=== PATIENT | male | born 1935 | race Caucasian/White ===

== ENCOUNTER → 2016-11-07 14:54 | Outpatient (CLI) | payer MEDICARE, OTHER ==
[2014-10-24 05:55] VITALS: BMI 31.8
[~2016-11-07 14:54] MED LIST: ACETAMINOPHEN325 MG PO; ASCORBIC ACID500 MG PO; ASPIRIN 81 MG E81 MG PO; CALCIUM CITRATE1 TAB PO; CARDURA8 MG PO; CLARITIN 10 MG10 MG PO; COLACE PO; COLACE100 MG PO; FERROUS SULFAT325 MG PO; FIBER PO; FISH OIL 1,0001 CA1 PO; FISH OIL PO; GLUCOSAMINE HC500 MG PO; GLUCOSAMINE PO; HYDROCHLOROTHIA25 MG PO; HYDROCODONE-APA1 TAB PO; LEVOXYL25 MCG PO; LIPITOR40 MG PO; MELOXICAM PO; MILK OF MAGNESI30 ML GT; MIRALAX17 GM PO; MOBIC7.5 MG PO; MULTIPLE VITAMI1 TA1 PO; PACERONE100 MG PO; PRINIVIL20 MG PO; PROBIOTIC1 EAC1 PO; QUESTRAN PACK4 G/PKT PO; RESTORIL15 MG PO; SAW PALMETTO450 MG PO; SENOKOT-S TABLE1 TAB PO; SYNTHROID200 MC1 PO; SYNTHROID25 MCG PO; TOPROL XL50 MG PO; TYLENOL PM1 TAB PO; ZESTRIL20 MG PO; ZESTRIL40 MG PO; ZOCOR80 MG PO; [UNRECOGNIZED DRUG - REMARK]
== END | disposition home or self-care (01) ==
LOC: D.US 14:54
DX: I70.211 Atherosclerosis of native arteries of extremities with intermittent claudication, right leg (principal)

== ENCOUNTER 2016-12-17 10:43 | Outpatient (CLI) | payer MEDICARE, OTHER ==
[~2016-12-17] VITALS: Ht 180.3 cm; Wt 106.8 kg
--- NOTE | ~2016-12-17 | HEMODYNAMI ---
PATIENT:NESSA CHEATHAM MEDICAL RECORD: [id number] : 33 LOCATION:D.CAT ADMISSION DATE: 12/17/16 Generatedon:12/17/201613:27 Patient name: NESSA CHEATHAM Patient #: [id number] SSN: DO B: 1935 Date of study: 12/17/2016 Page: Of Hemodynamic Procedure Report Patient Data Patient Demographics Procedure consent was obtained First Name: NESSA Gender: Male Last Name: LINDEN : 1935 Middle Initial: M Age: 81 year(s) Patient #: [id number] Race: Unknown Additional ID: [id number] Contact details [address]: [address] [place] [address] State: [place] City: [place] Zip code: [address] Admission Admission Data Admission Date: 12/17/2016 Admission Time: 10:43 Procedure Procedure Types Cath Procedure Miscellaneous Procedures Moderate Sedation up to 15 minutes Peripheral Cath Diagnostic Procedure Cath Peripheral Yzvph-Mknsrlt-Gst-Off Procedure Description Procedure Date Procedure Date: 12/17/2016 Procedure Start Time: 13:16 Procedure End Time: 13:26 Procedure Staff Name Function Sandoval Quan MD Performing Physician Chloe Garcia RT Scrub Shady Rome RN Nurse Radha Carlson RT Monitor Procedure Data Cath Procedure Fluoroscopy Diagnostic fluoroscopy Total fluoroscopy Time: 1 time: 1 min min Diagnostic fluoroscopy Total fluoroscopy dose: 602 dose: 602 mGy mGy Contrast Material Contrast Material Type Amount (ml) Isovue 300 130 Entry Location Entry Primary Successful Side Size Upsize Upsize Entry Closure Succes sful Closure Location (Fr) 1 (Fr) 2 (Fr) Remarks Device Remarks Femoral Left 5 Fr Exoseal artery Estimated blood loss: 10 ml Diagnostic catheters Device Type Used For End Catheter Placement Cordis Tempo 5Fr UF Procedure catheter Procedure Complications No complications Procedure Medications Medication Administration Route Dosage Oxygen NC 2 l/min Heparin Flush Bag added to field 2 bags (1000units/500ml NS) 0.9% NaCl I.V. 100 ml/hr Fentanyl I.V. 50 mcg Versed I.V. 1 mg Fentanyl I.V. 50 mcg Versed I.V. 1 mg Hemodynamics Rest Pre Cath Intra NCS Post Cath Vital Signs Time Heart Resp SPO2 NIBP (mmHg) Rhythm Pain Sedation Rate (ipm) (%) Status Level (bpm) 12:56:15 60 18 92 174/82(132) NSR 0 (11) 10(A) , No pain 13:01:25 51 17 100 176/86(150) NSR 0 (11) 10(A) , No pain 13:06:51 48 17 100 163/72(134) NSR 0 (11) 10(A) , No pain 13:12:04 48 18 99 155/69(127) NSR 0 (11) 10(A) , No pain 13:16:28 46 18 99 148/75(97) NSR 0 (11) 10(A) , No pain 13:20:46 50 18 100 134/72(122) NSR 0 (11) 10(A) , No pain 13:26:01 49 17 99 153/72(132) NSR 0 (11) 10(A) , No pain Medications Time Medication Route Dose Verified Delivered Reason Notes Effec tiveness by by 12:59:40 Oxygen NC 2 Shady Shady Per l/min Wild Rome RN physician RN 12:59:50 Heparin Flush added 2 Shady Shady used for Bag to bags Wild Rome RN procedure (1000units/500ml field RN NS) 13:00:05 0.9% NaCl I.V. 100 Shady Shady Per ml/hr Wild Rome RN physician RN 13:12:55 Fentanyl I.V. 50 Shady Shady for anthony Rome RN sedation RN 13:13:02 Versed I.V. 1 mg Shady Shady for Wild Rome RN sedation RN 13:16:20 Fentanyl I.V. 50 Shady Shady for antohny Rome RN sedation RN 13:16:23 Versed I.V. 1 mg Shady Shady for Wild Rome RN sedation tire assembler Log Time Note 12:32:31 Shady Rome RN sent for patient. Start room use. 12:42:24 Time tracking: Regular hours 12:42:28 Plan of Care:Hemodynamics will remain stable., Cardiac rhythm will remain stable., Comfort level will be maintained., Respiratory function will remain adequate., Patient/ family verbilizes understanding of procedure., Procedure tolerated without complication., Recovers from procedure without complications.. 12:49:43 Patient received from Pre/Post Procedure Room to CCL 2 Alert and oriented. Tansferred to table in Supine position. 12:49:45 Warm blankets applied, and roselia hugger turned on for patient comfort. 12:49:45 Correct patient and procedure confirmed by team. 12:49:46 Signed procedure consent form obtained from patient. 12:49:47 ECG and BP/O2 sat monitors applied to patient. 12:49:48 Full Disclosure recording started 12:54:50 Vital chart was started 12:58:29 H&P Date Dictated: 12/16/2016 Within 30 days and on chart., H&P Addendum completed by physician on day of procedure. (MUST COMPLETE FOR ALL OUTPATIENTS). 12:58:30 Pre-procedure instructions explained to patient. 12:58:30 Pre-op teaching completed and patient verbalized understanding. 12:58:32 Family in waiting room. 12:58:34 Patient NPO since Midnight. 12:58:43 Is patient on blood thinner?No 12:58:46 Patient diabetic? No. 12:58:55 Snore? Yes 12:58:56 Sleep apnea? Yes 12:58:59 Sticks out tongue? No 12:59:05 Dentures? No ? 12:59:16 IV patent on arrival in right hand with 0.9% NaCl at [facility]. 12:59:31 Lab results completed and on chart. 12:59:37 Bilateral groins area was prepped with chlora-prep and draped in sterile fashion 12:59:38 Alarms reviewed by R. N. 12:59:39 Sharps counted by scrub and verified by R.N. 12:59:40 Oxygen 2 l/min NC was administered by Shady Rome RN; Per physician; 12:59:50 Heparin Flush Bag (1000units/500ml NS) 2 bags added to field was administered by Shady Rome RN; used for procedure; 12:59:57 Bilateral groins site verified by team. 13:00:05 0.9% NaCl 100 ml/hr I.V. was administered by Shady Rome RN; Per physician; 13:00:06 Physical assessment completed. ASA score P 2 - A patient with mild systemic disease as per Sandoval Quan MD. 13:00:10 Sedation plan: IV Moderate Sedation Versed, Fentanyl 13:04:51 Physician paged 13:12:41 Physician arrived 13:12:45 --------ALL STOP TIME OUT------ 13:12:46 Final Timeout: patient, procedure, and site verified with staff and physician. All members of the team are in agreement. 13:12:55 Fentanyl 50 mcg I.V. was administered by Shady Rome RN; for sedation; 13:13:02 Versed 1 mg I.V. was administered by Shady Rome RN; for sedation; 13:13:19 Procedure type changed to Cath procedure, Miscellaneous Procedures, Moderate Sedation up to 15 minutes, Peripheral Cath Diagnostic Procedure, Cath Peripheral, Vqmsp-Ljhicju-Dzj-Off 13:13:22 Use device set Femoral Dx 13:13:28 Acist Syringe opened to sterile field. 13:13:29 Bag Decanter opened to sterile field. 13:13:30 Medline Cath Pack opened to sterile field. 13:13:31 Terumo 5Fr Methuen Sheath opened to sterile field. 13:13:32 St Chacorta 260cm J .035 wire opened to sterile field. 13:13:34 Acist Hand Control opened to sterile field. 13:13:35 Acist Manifold opened to sterile field. 13:13:37 Tegaderm 4 x 4 opened to sterile field. 13:15:18 Procedure started. 13:16:20 Fentanyl 50 mcg I.V. was administered by Shady Rome RN; for sedation; 13:16:23 Versed 1 mg I.V. was administered by Shady Rome RN; for sedation; 13:16:31 Local anesthetic to left femerol artery with Lidocaine 2% by Sandoval Quan MD.INITIAL ACCESS ONLY 13:16:53 A 5 Fr sheath was inserted into the Left Femoral artery 13:17:37 A Cordis Tempo 5Fr UF catheter was advanced over the wire and used for Procedure. 13:18:45 Abdominal angiogram w/ runoff was performed. 13:19:42 Left leg runoff performed. 13:21:18 Right leg runoff performed. 13:23:41 Cordis 5Fr Exoseal opened to sterile field. 13:25:03 Sheath removed intact; hemostasis achieved with Exoseal to the Left Femoral artery. 13:25:12 Procedure ended.(Physican Out) 13:25:16 Fluoroscopy time 01.00 minutes. 13:25:23 Fluoroscopy dose: 602 mGy 13:25:23 Flurop Dose total: 602 13:25:27 Contrast amount:Isovue 300 130ml. 13:25:28 Sharps counted by scrub and verified by R.N. 13:25:30 Insertion/operative site no bleeding no hematoma. 13:25:36 Post left femerol artery:stable 13:25:38 Post Procedure Pulses reassessed and unchanged 13:25:41 Post-procedure physical assessment completed. ASA score P 2 - A patient with mild systemic disease as per Sandoval Quan MD. 13:25:45 Post procedure rhythm: unchanged. 13:25:48 Estimated blood loss: 10 ml 13:25:49 Post procedure instruction explained to patient.Patient verbalizes understanding. 13:25:56 Procedure and supply charges have been captured, reviewed, submitted and are correct. 13:26:03 Procedure Complication : No complications 13:26:20 Vital chart was stopped 13:26:21 See physician's report for complete and final results. 13:26:24 Patient transfered to Pre/Post Procedure Room with Stretcher. 13:26:27 Procedure ended. 13:26:27 Full Disclosure recording stopped 13:26:30 End room use (Document Last) Device Usage Item Manufacture Quantity Catalog Hospital Part Current Minimal Lot# / Name Number Charge Number Stock Stock Seri al# Code Acist Acist 1 75717 217491 121658 113792 20 Syringe [employer] Bag Microtek 1 2002S 607013 89312 164921 5 Decanter [employer] Inc. Medline Cardinal 1 [id number] 55304 229838 5 Cath Health Pack Terumo Terumo 1 [id number] [id number] 434021 184028 [address] Ch[address] St Chacorta 1 737106 673635 786985 163444 30 260cm J .035 wire Acist Acist 1 10948 228053 347530 918185 5 Hand Medical [employer] Inc Acist Acist 1 97492 428298 191126 462640 5 Manifold Medical Systems Inc TegadeReplaced by [facility] 1 [id number] 580363 035488 5 4 x 4 Cordis Cardinal 1 [id number] 931795 706836 092549 10 Sharp [facility] Health 5Fr UF catheter Cordis Cardinal 1 EX500 939188 754670 961057 10 5Fr Health Exoseal Signature Audit [place] Stage Time Signature Unsigned Intra-Procedure 12/17/2016 Radha Carlson 1:27:35 PM RT(R) Signatures Monitor : Radha Carlson Signature : RT Date : Time : [id number] [place] [address]
[2016-12-17] MEDS ORDERED: BONIVA150 MG PO (11:06)
[2016-12-17 11:16] VITALS: BP 159/77; Ht 180.3 cm; Wt 106.8 kg
[2016-12-17 11:27] LABS: BASOPHILS 0.9 % (0-2); EOSINOPHILS 8.1 % (0-7); HEMATOCRIT 39.8 % (42.0-54.0); HEMOGLOBIN 13.4 g/dL (13.5-17.5); IMMATURE GRANULOCYTES 0.3 % (0-5); LYMPHOCYTES 28.9 % (15-50); MCH 31.2 pg (26.0-34.0); MCHC 33.7 g/dL (31.0-37.0); MCV 92.6 fL (80.0-100.0); MEAN PLATELET VOLUME 9.6 fL (7.4-10.4); MONOCYTES 9.6 % (2-11); NEUTROPHILS 52.2 % (40-80); PLATELET COUNT 210 10x3/uL (130-400); WBC 7.7 10x3/uL (4.8-10.8)
[2016-12-17 11:38] LABS: ANION GAP 13.5 mmol/L (8-16); CALCIUM 9.2 mg/dL (8.5-10.1); CARBON DIOXIDE 28.8 mmol/L (21.0-32.0); CREATININE - SERUM 1.3 mg/dL (0.6-1.3); POTASSIUM - SERUM 4.3 mmol/L (3.5-5.1)
--- NOTE | 2016-12-17 13:55 | NUR ---
2L NC, NO RESP DISTRESS NOTED. LEFT GROIN 5F EXOSEAL CDI, NO BLEEDING OR HEMATOMA NOTED. NO C/O PAIN OR NAUSEA. VSS. INSTRUCTED PT TO KEEP HEAD FLAT ON PILLOW AND LEFT LEG STRAIGHT.
--- NOTE | 2016-12-17 14:25 | NUR ---
2L NC, NO RESP DISTRESS NOTED. LEFT GROIN 5F EXOSEAL CDI, NO BLEEDING OR HEMATOMA NOTED. VSS. NO C/O AT THIS TIME. WILL CONTINUE TO MONITOR.
--- NOTE | 2016-12-17 15:15 | NUR ---
HOB ELEVATED 30 DEGREES, NO BLEEDING OR HEMATOMA NOTED TO LEFT GROIN. VSS.
--- NOTE | 2016-12-17 15:34 | NUR ---
DR. URBINA AT BEDSIDE SPEAKING WITH PT AND FAMILY. RIGHT HAND PIV D/C'D WITH CATHETER INTACT, BAND AID TO SITE. UP TO BEDSIDE TO GET DRESSED.
--- NOTE | 2016-12-17 15:42 | NUR ---
DISCHARGE INSTRUCTIONS GIVEN, VERBALIZED UNDERSTANDING.
--- NOTE | 2016-12-17 15:50 | NUR ---
TAKEN OUT VIA WHEELCHAIR BY CATH EXCELSIOR MACHINE FEEDER. LEFT FACILITY WITH AND ALL PERSONAL BELONGINGS.
--- NOTE | 2016-12-18 14:06 | OP ---
PATIENT NAME: NESSA CHEATHAM MEDICAL RECORD: [id number] :33 LOCATION:D.CAT ADMISSION DATE: SURGEON: CAPRI URBINA MD DATE OF OPERATION: 12/17/2016 Aortofemoral Runoff PROCEDURE: Left femoral was cannulated via modified Seldinger technique. The catheter was placed above the level of the renal arteries and abdominal aorta with runoff performed. The catheter was then pulled down to the bifurcation for lower extremity runoff. FINDINGS: 1. Abdominal aorta. This shows no evidence of dissection, no evidence of aneurysm. Renal arteries, ____. Right renal artery shows no evidence of significant stenosis. Left renal artery shows no evidence of significant stenosis. 2. The catheter was withdrawn to the level of the bifurcation. 3. Left system: Left common iliac shows no evidence of significant stenosis. Left internal iliac, no evidence of significant stenosis. Left external iliac, no evidence of significant stenosis. Common femoral, no significant stenosis. Left deep femoral system shows no significant stenosis. Left superficial system shows minimal wall disease throughout its course with good 3-vessel runoff distally. 4. Right system: Right common iliac, no evidence of significant stenosis. Right external iliac, no significant stenosis. Right internal iliac no significant stenosis. Femoral system: The left common femoral, no significant stenosis. Left deep femoral, no significant stenosis. Left superficial femoral shows marked calcification at its distal 1/3, but no flow obstructing stenosis, otherwise with good 3-vessel runoff vessel. IMPRESSION: No significant stenosis of either iliac system. TRANSINT:[id number] Voice Confirmation ID: [id number] DOCUMENT ID: [id number] CAPRI URBINA MD at 1406 CC: [id number] DICTATION DATE: 12/17/16 1330 AUDIO VISUAL COORDINATOR: 12/17/16 2257 DEP CLI 12/17/16 [facility] [address] [id number]
== END 2016-12-17 15:50 | disposition home or self-care (01) ==
LOC: D.CATH 10:43
PROVIDERS: Internal Medicine Interventional Cardiology
DX: M79.606 Pain in leg, unspecified (principal); Z01.812 Encounter for preprocedural laboratory examination

== ENCOUNTER → 2016-12-29 09:21 | Outpatient (CLI) | payer MEDICARE, OTHER ==
[2016-12-17 11:16] VITALS: BMI 32.8
[~2016-12-29 09:21] MED LIST changes: +BONIVA150 MG PO
== END | disposition home or self-care (01) ==
LOC: D.US 09:21
DX: C73 Malignant neoplasm of thyroid gland (principal)

== ENCOUNTER 2018-07-22 06:33 | Day surgery (SDC) | payer MEDICARE, OTHER ==
[2018-07-21 15:26] LABS: BASOPHILS 0.9 % (0-2); EOSINOPHILS 6.2 % (0-7); HEMATOCRIT 37.6 % (42.0-54.0); HEMOGLOBIN 12.6 g/dL (13.5-17.5); IMMATURE GRANULOCYTES 0.2 % (0-5); LYMPHOCYTES 29.7 % (15-50); MCH 29.9 pg (26.0-34.0); MCHC 33.5 g/dL (31.0-37.0); MCV 89.3 fL (80.0-100.0); MEAN PLATELET VOLUME 9.3 fL (7.4-10.4); MONOCYTES 9.7 % (2-11); NEUTROPHILS 53.3 % (40-80); PLATELET COUNT 215 10x3/uL (130-400); RBC 4.21 10x6/uL (4.20-6.10); RDW 14.4 % (11.5-14.5); WBC 8.2 10x3/uL (4.8-10.8)
[2018-07-21 15:34] LABS: ANION GAP 12.3 mmol/L (8-16); CALCIUM 8.8 mg/dL (8.5-10.1); CARBON DIOXIDE 28.8 mmol/L (21.0-32.0); CREATININE - SERUM 1.7 mg/dL (0.6-1.3); POTASSIUM - SERUM 4.1 mmol/L (3.5-5.1)
[~2018-07-22] VITALS: Ht 180.3 cm; Wt 99.8 kg
[2018-07-22] MEDS ORDERED: SUPHEDRINE 12-120 MG PO (07:02)
[2018-07-22 07:09] VITALS: BP 163/78; Ht 180.3 cm; Wt 99.8 kg
[2018-07-22] MEDS ORDERED: HYDROCODON-ACE1 EA10 PO (09:39)
--- NOTE | 2018-07-22 11:15 | NUR ---
1105 IV DC'D. BLEEDING AT SITE. PRESSURE HELD UNTIL STOPPED. BANDAID APPLIED.
--- NOTE | 2018-07-22 13:09 | OP ---
PATIENT NAME: NESSA CHEATHAM MEDICAL RECORD: [id number] :33 LOCATION:D.[facility] ADMISSION DATE: SURGEON: VARUN LANDEROS MD DATE OF OPERATION: 07/22/2018 PREOPERATIVE DIAGNOSIS: Painful retained hardware, left knee. POSTOPERATIVE DIAGNOSIS: Painful retained hardware, left knee. PROCEDURE: Removal of painful prepatellar wires, left knee, with fluoroscopy. SURGEON: Varun Landeros MD ANESTHESIA: General. INTRAOPERATIVE COMPLICATIONS: None. INDICATIONS: Mr. Cheatham is an 82-year-old gentleman who had previous patellar fracture. He had symptomatic hardware with a partial removal prior; however, when he was left with, it became very painful again. For this reason, we scheduled him for removal of symptomatic hardware. OPERATIVE SUMMARY IN DETAIL: After obtaining the appropriate preoperative orthopedic surgery consent as well as anesthetic consultation, evaluation, and clearance, the patient was brought to the operating room and placed on the operating table in the supine position. After adequate general laryngeal mask airway was administered, the patient's left lower extremity was prepped and draped in routine sterile fashion. The incision was based on the same incision of the patient's patellar surgery. A gentle dissection was carried medially until the symptomatic wires were found. It was then removed with fluoroscopic assistance. A small other area of a prominent bone was also rongeured down. Having completed this, wound was irrigated and closed with 2-0 Vicryl followed by 4-0 Prolene. The area was locally anesthetized with 0.25% Marcaine with epinephrine. Sterile dressings were applied. The patient was awakened and taken to recovery room in stable condition. All final needle and sponge counts were correct. TRANSINT:[id number] Voice Confirmation ID: [id number] DOCUMENT ID: [id number] VARUN LANDEROS MD at 1309 CC: [id number] DICTATION DATE: 07/22/18 0946 LIFE MANAGEMENT TEACHER: 07/22/18 1104 [facility] 07/22/[address] [address]
== END 2018-07-22 11:27 | disposition home or self-care (01) ==
LOC: D.OPS 06:33 → D.PAN 18:00 → D.OPS 18:00
PROVIDERS: Anesthesiology; ATTEND Orthopaedic Surgery
DX: T84.84XA Pain due to internal orthopedic prosthetic devices, implants and grafts, initial encounter (principal); M25.562 Pain in left knee; Z01.812 Encounter for preprocedural laboratory examination

== ENCOUNTER 2019-02-15 13:54 | Emergency (ER) | payer MEDICARE, OTHER ==
[~2019-02-15] VITALS: Ht 180.3 cm; Wt 106.8 kg
[~2019-02-15 13:54] MED LIST changes: +HYDROCODON-ACE1 EA10 PO; +SUPHEDRINE 12-120 MG PO
[2019-02-15 14:09] VITALS: Ht 180.3 cm; Wt 106.8 kg
[2019-02-15 14:50] LABS: ALBUMIN 3.7 g/dL (3.4-5.0); ANION GAP 10.2 mmol/L (8-16); BILIRUBIN - TOTAL 0.41 mg/dL (0.2-1.3); CALCIUM 8.4 mg/dL (8.5-10.1); CARBON DIOXIDE 28.9 mmol/L (21.0-32.0); CREATININE - SERUM 1.3 mg/dL (0.6-1.3); POTASSIUM - SERUM 4.1 mmol/L (3.5-5.1); PROTEIN - SERUM 6.5 g/dL (6.4-8.2)
[2019-02-15 16:10] LABS: BASOPHILS 0.8 % (0-2); EOSINOPHILS 4.3 % (0-7); HEMATOCRIT 34.1 % (42.0-54.0); HEMOGLOBIN 11.9 g/dL (13.5-17.5); IMMATURE GRANULOCYTES 0.5 % (0-5); LYMPHOCYTES 20.1 % (15-50); MCH 32.5 pg (26.0-34.0); MCHC 34.9 g/dL (31.0-37.0); MCV 93.2 fL (80.0-100.0); MONOCYTES 9.4 % (2-11); NEUTROPHILS 64.9 % (40-80); PLATELET COUNT 217 10x3/uL (130-400); RBC 3.66 10x6/uL (4.20-6.10); RDW 13.9 % (11.5-14.5); WBC 6.3 10x3/uL (4.8-10.8)
[2019-02-15] MEDS ORDERED: VIBRAMYCIN 100100 MG PO (17:55)
[2019-02-15 18:04] VITALS: BP 127/80
== END 2019-02-15 18:46 | disposition home or self-care (01) ==
LOC: D.ER 13:54
PROVIDERS: Family Medicine
DX: S01.81XA Laceration without foreign body of other part of head, initial encounter (principal); W19.XXXA Unspecified fall, initial encounter; I48.91 Unspecified atrial fibrillation; I25.10 Atherosclerotic heart disease of native coronary artery without angina pectoris; I10 Essential (primary) hypertension; E78.5 Hyperlipidemia, unspecified